=== PATIENT | male | born 1945 | race Caucasian/White ===

== ENCOUNTER 2024-12-15 08:23 | Outpatient (CLI) | payer MEDICARE, OTHER | END 2024-12-15 08:24 | disposition home or self-care (01) | LOC: CSHCT 08:23 | PROVIDERS: ATTEND Internal Medicine Hematology & Oncology | DX: C90.01 Multiple myeloma in remission (principal); D50.9 Iron deficiency anemia, unspecified; C18.7 Malignant neoplasm of sigmoid colon; R91.8 Other nonspecific abnormal finding of lung field; E27.8 Other specified disorders of adrenal gland; K86.89 Other specified diseases of pancreas; K59.00 Constipation, unspecified | CPT/HCPCS: 71260; 74177 ==